=== PATIENT | female | born 1950 | race Caucasian/White ===

== ENCOUNTER 2017-11-08 05:33 | Inpatient (IN) ==
[2017-10-28 11:31] LABS: Basophils # 0.1 10*3/uL (0.0-0.2); Basophils % 1.2 % (0.0-0.8); Eosinophils # 0.3 10*3/uL (0.0-0.87); Eosinophils % 3.2 % (0.00-10.9); Hematocrit 44.7 VOL% (35.7-47.0); Hemoglobin 15.4 GM/DL (12.0-16.0); Immature Granulocytes % 0.3 %; Immature Granulocytes Absolute 0.03 #; Lymphocytes # 3.5 10*3/uL (1.4-4.0); Lymphocytes % 40.3 % (21.3-54.2); Mean Corpuscular HGB Conc 34.5 GM/DL (32-36); Mean Corpuscular Hemoglobin 33 PG (27-34); Mean Platelet Volume 9.7 FL (9.6-12.0); Monocytes # 0.8 10*3/uL (0.11-0.8); Monocytes % 8.9 % (1.7-12.7); Neutrophils % 46.1 % (38.7-73.9); Platelet Count 234 T/CUMM (130-400); Red Blood Count 4.61 MC/CUMM (3.8-5.5); Red Cell Distribution Width 13.1 % (9.3-17.3); White Blood Count 8.7 T/CUMM (4-12)
[2017-10-28 11:39] LABS: Apearance,Urine CLEAR (Clear); Bilirubin,Urine Negative (Negative); Blood, Urine Moderate mg/dL (Negative); Glucose,Urine (UA) Negative (Negative); Ketones,Urine Negative (Negative); Nitrite,Urine Negative (Negative); Protein,Urine Negative; RBC,Urine 15 /HPF (0-4); Squamous Epithelial Cell,Urine Occasional /HPF (0-10); Urine Color Yellow (Yellow); Urine Specific Gravity 1.009 (1.001-1.035); Urine Urobilinogen < 2.0 EU/DL (0.2-1.0); WBC,Urine <1 /HPF (0-6)
[2017-10-28 11:43] LABS: INR 0.9; PT Patient Result 9.5 SECS
[2017-10-28 12:06] LABS: Calcium 8.8 MG/DL (8.5-10.1); Osmolality,Calculated 282.3 MOS/KG (273-304); Potassium 4.2 MMOL/L (3.5-5.1)
[2017-11-08] MEDS ORDERED: VANCOMYCIN 1,000 MG VIAL ONE (06:14)
[2017-11-08] MEDS ORDERED: ceFAZolin 1,000 MG VIAL ONE (06:14)
[2017-11-08] MEDS ORDERED: DIAZEPAM 5 MG TABLET PO ONE (06:15)
[2017-11-08] MEDS ORDERED: FAMOTIDINE 20 MG TABLET PO ONE (06:15)
[2017-11-08] MEDS ORDERED: VANCOMYCIN INJ 1,000 MG in SODIUM CHLORIDE 0.9% 250 ML IV ONE (06:30)
[2017-11-08] MEDS ORDERED: BACITRACIN OINT 0.9 GM PACK TOP ONE (07:04)
[2017-11-08] MEDS ORDERED: DIAZEPAM 5 MG TABLET ONE (07:30)
[2017-11-08] MEDS ORDERED: FAMOTIDINE 20 MG TABLET ONE (07:30)
[2017-11-08] MEDS ORDERED: LACTATED RINGERS 1,000 ML IV SCH (07:30)
[2017-11-08] MEDS ORDERED: TRANEXAMIC ACID 1,000 MG/10 ML VIAL IV ONE (09:32)
[2017-11-08] MEDS ORDERED: diphenhydrAMINE CAP 25 MG CAPSULE PO PRN (10:05)
[2017-11-08] MEDS ORDERED: MAGNESIUM HYDROXIDE SUSP 30 ML UDCUP PO PRN (10:05)
[2017-11-08] MEDS ORDERED: ZALEPLON 5 MG CAPSULE PO PRN (10:05)
[2017-11-08] MEDS ORDERED: MORPHINE 2 MG/1 ML SYRINGE IV PRN ×2 (10:05)
[2017-11-08] MEDS ORDERED: ONDANSETRON 4 MG/2 ML VIAL IV PRN (10:05)
[2017-11-08] MEDS ORDERED: oxyCODONE IR 5 MG TABLET PO PRN (10:05)
[2017-11-08] MEDS ORDERED: ROPIVACAINE 0.5% 30 ML VIAL ONE (10:08)
[2017-11-08] MEDS: KETOROLAC 30 MG/1 ML VIAL IV SCH ×3 (10:31→22:42)
[2017-11-08] MEDS ORDERED: KETOROLAC 30 MG/1 ML VIAL ONE (10:31)
[2017-11-08] MEDS ORDERED: MEPERIDINE 25 MG/1 ML VIAL IV PRN (10:39)
[2017-11-08] MEDS ORDERED: MEPERIDINE 25 MG/1 ML VIAL ONE (10:41)
[2017-11-08] MEDS ORDERED: PROPOFOL 500 MG/50 ML BOTTLE IV ONE (10:58)
[2017-11-08] MEDS ORDERED: KETAMINE 500 MG/10 ML VIAL ONE (10:58)
[2017-11-08] MEDS ORDERED: MIDAZOLAM 2 MG/2 ML VIAL ONE (10:58)
[2017-11-08] MEDS: LACTATED RINGERS 1,000 ML IV SCH ×2 (12:58→22:48)
[2017-11-08] MEDS ORDERED: LIDOCAINE 2% TOP JELLY 20 ML VIAL INTRAURETH ONE (13:09)
[2017-11-08] MEDS: ACETAMINOPHEN 500 MG TABLET PO SCH ×2 (15:25→20:03)
[2017-11-08] MEDS: ceFAZolin 1,000 MG in SYRINGE 1 EACH IV SCH ×2 (15:31→22:42)
[2017-11-08] MEDS: oxyCODONE IR 5 MG TABLET PO PRN (20:04)
[2017-11-08] MEDS: DOCUSATE SODIUM 100 MG CAPSULE PO SCH (20:04)
[2017-11-08] MEDS: AMITRIPTYLINE 50 MG TABLET PO SCH (20:04)
[2017-11-08] MEDS: LOVASTATIN 20 MG TABLET PO SCH (20:25)
[2017-11-09] MEDS: ACETAMINOPHEN 500 MG TABLET PO SCH ×2 (02:54→10:23)
[2017-11-09 04:17] LABS: Basophils # 0.1 10*3/uL (0.0-0.2); Basophils % 0.7 % (0.0-0.8); Eosinophils # 0.4 10*3/uL (0.0-0.87); Eosinophils % 3.4 % (0.00-10.9); Hematocrit 37.2 VOL% (35.7-47.0); Hemoglobin 12.9 GM/DL (12.0-16.0); Immature Granulocytes % 0.3 %; Immature Granulocytes Absolute 0.03 #; Lymphocytes # 2.7 10*3/uL (1.4-4.0); Lymphocytes % 25.9 % (21.3-54.2); Mean Corpuscular HGB Conc 34.7 GM/DL (32-36); Mean Corpuscular Hemoglobin 33 PG (27-34); Mean Corpuscular Volume 95.4 FL (87-102); Mean Platelet Volume 10.3 FL (9.6-12.0); Monocytes # 1.2 10*3/uL (0.11-0.8); Monocytes % 12.1 % (1.7-12.7); Neutrophils # 5.9 10*3/uL (1.4-7.4); Neutrophils % 57.6 % (38.7-73.9); Platelet Count 187 T/CUMM (130-400); Red Cell Distribution Width 13.2 % (9.3-17.3); White Blood Count 10.3 T/CUMM (4-12)
[2017-11-09 04:56] LABS: Calcium 8.1 MG/DL (8.5-10.1); Osmolality,Calculated 282.3 MOS/KG (273-304)
[2017-11-09] MEDS: KETOROLAC 30 MG/1 ML VIAL IV SCH (04:56)
[2017-11-09] MEDS: oxyCODONE IR 5 MG TABLET PO PRN (04:57)
[2017-11-09] MEDS: FONDAPARINUX 2.5 MG/0.5 ML SYRINGE SUBCUT SCH (05:56)
[2017-11-09] MEDS: DOCUSATE SODIUM 100 MG CAPSULE PO SCH ×2 (10:23→20:36)
[2017-11-09] MEDS: CELECOXIB 200 MG CAPSULE PO SCH (16:37)
[2017-11-09] MEDS: AMITRIPTYLINE 50 MG TABLET PO SCH (20:35)
[2017-11-09] MEDS: LOVASTATIN 20 MG TABLET PO SCH (20:35)
[2017-11-10 06:22] LABS: Basophils # 0.1 10*3/uL (0.0-0.2); Basophils % 0.5 % (0.0-0.8); Eosinophils # 0.3 10*3/uL (0.0-0.87); Eosinophils % 2.1 % (0.00-10.9); Hematocrit 37.2 VOL% (35.7-47.0); Hemoglobin 12.5 GM/DL (12.0-16.0); Immature Granulocytes % 0.6 %; Immature Granulocytes Absolute 0.07 #; Lymphocytes # 1.9 10*3/uL (1.4-4.0); Mean Corpuscular HGB Conc 33.6 GM/DL (32-36); Mean Corpuscular Hemoglobin 33 PG (27-34); Mean Corpuscular Volume 96.6 FL (87-102); Mean Platelet Volume 10.4 FL (9.6-12.0); Monocytes # 1.2 10*3/uL (0.11-0.8); Monocytes % 9.9 % (1.7-12.7); Neutrophils # 8.5 10*3/uL (1.4-7.4); Neutrophils % 70.9 % (38.7-73.9); Platelet Count 192 T/CUMM (130-400); Red Blood Count 3.85 MC/CUMM (3.8-5.5); Red Cell Distribution Width 13.2 % (9.3-17.3)
[2017-11-10] MEDS: FONDAPARINUX 2.5 MG/0.5 ML SYRINGE SUBCUT SCH (07:03)
[2017-11-10] MEDS: DOCUSATE SODIUM 100 MG CAPSULE PO SCH (09:53)
[2017-11-10] MEDS: CELECOXIB 200 MG CAPSULE PO SCH (09:53)
[2017-11-10 11:36] VITALS: BP 115/62
== END 2017-11-10 16:40 | disposition home health service (06) | DRG 470 ==
LOC: N.OR 05:33 → N.SDSINP 05:34 → N.3E 09:53 → EDSTATUS 10:00 → N.3E 10:05
PROVIDERS: ADMIT Orthopaedic Surgery; ATTEND Orthopaedic Surgery